=== PATIENT | male | born 1935 | race Caucasian/White ===

== ENCOUNTER 2022-04-24 07:10 | Emergency (ER) | payer OTHER ==
[~2022-04-24] VITALS: Ht 180.3 cm; Wt 77.1 kg
[~2022-04-24 07:10] MED LIST: ASCO100031 PO; GARL1000 PO; LYSI500T11 PO; MAGN500C4 PO; POTA99TA25 PO; VITA150T PO; VITA200T6 PO
[2022-04-24 07:17] VITALS: BP 210/91
[2022-04-24 08:04] LABS: BASOPHILS % (AUTO) 0.4 % (0.0-5.0); EOSINOPHILS % (AUTO) 0.4 % (0.0-8.0); HEMATOCRIT 43.6 % (42-54); LYMPHOCYTES % (AUTO) 54.2 % (21.0-51.0); MEAN CORPUSCULAR HEMOGLOBIN 29.6 pg (27.0-33.0); MEAN CORPUSCULAR HGB CONC 33.7 g/dL (32.0-36.0); MEAN CORPUSCULAR VOLUME 87.9 fL (79-99); MONOCYTES % (AUTO) 37.4 % (3.0-13.0); NEUTROPHILS % (AUTO) 7.4 % (40.0-77.0); PLATELET COUNT (AUTO) 138 K/uL (130-400); RED BLOOD CELL COUNT(AUTO) 4.96 MIL/uL (4.50-6.20); RED CELL DISTRIBUTION WIDTH 14.6 % (11.0-15.5)
[2022-04-24 08:08] LABS: WHITE BLOOD COUNT (AUTO) 46.5 K/uL (4.8-10.8)
[2022-04-24 08:17] LABS: CREATININE 0.9 mg/dL (0.5-1.5); POTASSIUM 4.4 mmol/L (3.5-5.1)
[2022-04-24 08:18] LABS: APPEARANCE,URINE Clear (CLEAR); BILIRUBIN,URINE Negative (NEGATIVE); COLOR,URINE Dark Yellow (YELLOW); GLUCOSE, URINE (UA) Negative (NEGATIVE); KETONES,URINE Trace mg/dL (NEGATIVE); LEUKOCYTE ESTERASE ,URINE Negative (NEGATIVE); NITRATE,URINE Negative (NEGATIVE); OCCULT BLOOD,URINE Negative (NEGATIVE); PH,URINE 5.5 (5.0-8.0); PROTEIN,URINE Negative (NEGATIVE)
[2022-04-24 08:23] LABS: BILIRUBIN,TOTAL 0.6 mg/dL (0.2-1.0); TOTAL PROTEIN, SERUM 7.4 g/dL (6.0-8.3)
[2022-04-24 08:36] LABS: B-TYPE NATRIURETIC PEPTIDE 284 pg/mL (0-100)
[2022-04-24 08:40] LABS: BAND NEUTROPHILS % (MANUAL) 1 % (0-2); EOSINOPHILS % (MANUAL) 1 % (1-6); LYMPHOCYTES % (MANUAL) 74 % (22-44); MAN.DIFF COMMENT-IMPRESSION MANUAL DIFFERENTIAL; MONOCYTES % (MANUAL) 1 % (2-9); MYELOCYTES % 2 % (0-0); REACTIVE LYMPHOCYTES 12 % (0-0); SEGMENTED NEUTROPHILS % 9 % (40-70)
[2022-04-24 08:42] LABS: PLATELET MORPHOLOGY COMMENT SLIGHTLY DECREASED
[2022-04-24] MEDS ORDERED: CEFTRIAXONE 1G VIAL ONE (08:50)
[2022-04-24] MEDS ORDERED: CEFTRIAXONE 1G VIAL IM ONE (09:00)
[2022-04-24] MEDS ORDERED: CEPH500B PO (09:14)
== END 2022-04-24 09:22 | disposition home or self-care (01) ==
LOC: EDH 07:10
DX: R22.42 Localized swelling, mass and lump, left lower limb (principal); D72.820 Lymphocytosis (symptomatic); R01.1 Cardiac murmur, unspecified; E78.00 Pure hypercholesterolemia, unspecified; I10 Essential (primary) hypertension
CPT/HCPCS: 36415; 80053; 81003; 82550; 83605; 83880; 84145; 84484; 85025; 87040 ×2; 96372; 99283; J0696